=== PATIENT | male | born 1965 | race African-American/Black ===

== ENCOUNTER 2017-06-19 12:44 | Emergency (ER) | payer SELFPAY | END 2017-06-19 13:49 | disposition home or self-care (01) | LOC: MADERS 12:44 | DX: S39.012A Strain of muscle, fascia and tendon of lower back, initial encounter (principal); M54.16 Radiculopathy, lumbar region; I10 Essential (primary) hypertension; F17.210 Nicotine dependence, cigarettes, uncomplicated; Z79.899 Other long term (current) drug therapy; X58.XXXA Exposure to other specified factors, initial encounter | CPT/HCPCS: 99283 ==